=== PATIENT | female | born 1985 | race Caucasian/White ===

== ENCOUNTER 2018-05-10 02:49 | Inpatient (IN) | payer OTHER ==
[~2018-05-10] VITALS: Ht 165.1 cm; Wt 96.0 kg
[~2018-05-10 02:49] MED LIST: LABE300T2 PO; LEVO25TA2 PO; OXYC-302 PO; PREN1TAB60 PO
[2018-05-10] MEDS ORDERED: NEWBORN KIT ONE (04:19)
[2018-05-10] MEDS ORDERED: OXYTOCIN 30U/ 0.9% NaCL 500ML 500 ML IV ONE (04:32)
[2018-05-10] MEDS ORDERED: D5%-LACTATED RINGERS 1,000 ML IV SCH (04:32)
[2018-05-10] MEDS: LACTATED RINGERS 1,000 ML IV SCH ×2 (04:44→12:21)
[2018-05-10] MEDS ORDERED: ONDANSETRON 2MG/ML, 2ML IVPush PRN (05:00)
[2018-05-10] MEDS ORDERED: PENICILLIN GK 5,000,000 UNITS in SODIUM CHLORIDE 0.9% 100 ML IVPB ONE (05:00)
[2018-05-10] MEDS ORDERED: TERBUTALINE 1 MG/ML, 1ML IVPush PRN (05:00)
[2018-05-10] MEDS ORDERED: CALCIUM CARBONATE 500 MG TAB.CHEW PO PRN (05:00)
[2018-05-10] MEDS ORDERED: FENTANYL PF 100 MCG/2ML IV PRN (05:00)
[2018-05-10 05:01] LABS: BASOPHILS # (AUTO) 0.07 x10^3/uL (0-0.1); BASOPHILS % (AUTO) 1 % (0-1); EOSINOPHILS # (AUTO) 0.23 x10^3/uL (0-0.4); EOSINOPHILS % (AUTO) 2 % (1-7); LYMPHOCYTES # (AUTO) 2.26 x10^3/uL (1-3.4); LYMPHOCYTES % (AUTO) 20 % (22-44); MD NO; MEAN CORPUSCULAR HEMOGLOBIN 28.3 pg (27.0-34.8); MEAN CORPUSCULAR HGB CONC 33.4 g/dL (32.4-35.8); MEAN CORPUSCULAR VOLUME 84.6 fL (80-100); MEAN PLATELET VOLUME 10.4 fL (7.4-10.4); MONOCYTES # (AUTO) 0.69 x10^3/uL (0.2-0.8); MONOCYTES % (AUTO) 6 % (2-9); NEUTROPHILS # (AUTO) 8.32 x10^3/uL (1.8-6.8); NEUTROPHILS % (AUTO) 72 % (42-75); PLATELET COUNT 181 x10^3/uL (130-400); RED BLOOD COUNT 4.37 x10^6/uL (3.82-5.3)
[2018-05-10 05:24] LABS: ALBUMIN 2.5 g/dL (3.4-5.0); ANION GAP 9 mmol/L (5-15); CALCIUM 8.4 mg/dL (8.5-10.1); CHLORIDE 109 mmol/L (98-107)
[2018-05-10 05:30] LABS: ALANINE AMINOTRANSFERASE 17 U/L (12-78); ALKALINE PHOSPHATASE 121 U/L (45-117); BILIRUBIN,TOTAL 0.2 mg/dL (0.2-1.0); CREATININE 0.55 mg/dL (0.55-1.02); TOTAL PROTEIN 6.6 g/dL (6.4-8.2)
[2018-05-10] MEDS ORDERED: OXYTOCIN 30U/ 0.9% NaCL 500ML 500 ML ONE (05:34)
[2018-05-10] MEDS ORDERED: OXYTOCIN 30U/ 0.9% NaCL 500ML 500 ML IV PRN (06:44)
[2018-05-10] MEDS ORDERED: ASPI-496 PO (08:16)
[2018-05-10] MEDS: PENICILLIN GK 2,500,000 UNITS in DEXTROSE 5% 100 ML IVPB SCH ×4 (09:42→20:37)
[2018-05-11] MEDS: PENICILLIN GK 2,500,000 UNITS in DEXTROSE 5% 100 ML IVPB SCH ×2 (01:11→04:40)
[2018-05-11] MEDS ORDERED: FENTANYL PF 100 MCG/2ML ONE ×7 (01:14→09:58)
[2018-05-11] MEDS ORDERED: ONDANSETRON 2MG/ML, 2ML ONE ×2 (01:14→07:16)
[2018-05-11] MEDS: FENTANYL PF 100 MCG/2ML IVPush PRN ×2 (01:16→02:57)
[2018-05-11] MEDS ORDERED: LACTATED RINGERS 1,000 ML IV SCH ×8 (04:13→10:00)
[2018-05-11] MEDS ORDERED: FENTANYL/BUPIV./NS/PF 250 ML EPIDCONT SCH ×3 (04:13→06:17)
[2018-05-11] MEDS ORDERED: LACTATED RINGERS 1,000 ML IVBOLUS PRN ×3 (04:30→06:30)
[2018-05-11] MEDS ORDERED: FENTANYL/BUPIV./NS/PF 0 ML EPIDCONT ONE (04:49)
[2018-05-11] MEDS ORDERED: FENTANYL/BUPIV./NS/PF 250 ML EPIDCONT ONE (04:53)
[2018-05-11] MEDS ORDERED: BUPIVACAINE 0.25% ONE (04:53)
[2018-05-11] MEDS ORDERED: EPHEDRINE 50 MG/ML, 1ML ONE ×2 (04:53→07:16)
[2018-05-11] MEDS ORDERED: METOCLOPRAMIDE 5 MG/ML, 2ML ONE (06:27)
[2018-05-11] MEDS ORDERED: SODIUM CITRATE/CITRIC ACID 30 ML UDC ONE (06:27)
[2018-05-11] MEDS ORDERED: OXYTOCIN 30U/ 0.9% NaCL 500ML 500 ML IV SCH ×2 (06:28→09:17)
[2018-05-11] MEDS ORDERED: ONDANSETRON 2MG/ML, 2ML IVPush PRN ×2 (06:30→07:30)
[2018-05-11] MEDS ORDERED: EPHEDRINE 50 MG/ML, 1ML IVPush PRN ×2 (06:30→07:30)
[2018-05-11] MEDS ORDERED: METOCLOPRAMIDE 5 MG/ML, 2ML IV ONE (06:30)
[2018-05-11] MEDS ORDERED: SODIUM CITRATE/CITRIC ACID 30 ML UDC PO ONE (06:30)
[2018-05-11] MEDS ORDERED: AZITHROMYCIN 500 MG in SODIUM CHLORIDE 0.9% 250 ML IV STA (06:41)
[2018-05-11] MEDS ORDERED: DEXAMETHASONE 4 MG/ML, 1ML ONE (07:16)
[2018-05-11] MEDS ORDERED: PROPOFOL 10 MG/ML, 20ML ONE (07:16)
[2018-05-11] MEDS ORDERED: PHENYLEPHRINE 10 MG/ML ONE (07:16)
[2018-05-11] MEDS ORDERED: KETOROLAC 30 MG/1 ML ONE (07:16)
[2018-05-11] MEDS ORDERED: SUCCINYLCHOLINE 20 MG/ML, 10ML ONE (07:16)
[2018-05-11] MEDS ORDERED: OXYTOCIN 10 UNITS/ML, 1ML ONE (07:16)
[2018-05-11] MEDS ORDERED: CEFAZOLIN 1,000 MG ONE (07:16)
[2018-05-11] MEDS ORDERED: FENTANYL PF 100 MCG/2ML IV PRN (07:30)
[2018-05-11] MEDS ORDERED: ALBUTEROL SULFATE 2.5 MG/3 ML NPPB PRN (07:30)
[2018-05-11] MEDS ORDERED: HYDROmorphone 1 MG/ML, 1ML IV PRN (07:30)
[2018-05-11] MEDS ORDERED: MEPERIDINE/PF 25MG/0.5ML IVPush PRN (07:30)
[2018-05-11] MEDS ORDERED: LABETALOL 5MG/ML, 20ML IV PRN (07:30)
[2018-05-11] MEDS ORDERED: HYDROcodone/APAP 7.5-325MG/15ML UDC PO PRN (07:30)
[2018-05-11] MEDS ORDERED: OXYcodone 5 MG/5 ML ORAL.SOL UDC PO PRN (07:30)
[2018-05-11] MEDS ORDERED: MIDAZOLAM 1 MG/ML, 2ML IV PRN (07:30)
[2018-05-11] MEDS ORDERED: PROMETHAZINE 25 MG/ML, 1ML IV PRN (07:30)
[2018-05-11] MEDS ORDERED: hydrALAzine 20 MG/ML, 1ML IV PRN (07:30)
[2018-05-11] MEDS ORDERED: OXYTOCIN 30U/ 0.9% NaCL 500ML 500 ML ONE (09:11)
[2018-05-11] MEDS ORDERED: ACETAMINOPHEN 325 MG TABLET PO PRN (09:30)
[2018-05-11] MEDS ORDERED: ONDANSETRON 2MG/ML, 2ML IV PRN (09:30)
[2018-05-11] MEDS ORDERED: MISOPROSTOL 200 MCG TABLET PR PRN (09:30)
[2018-05-11] MEDS ORDERED: morphine SULFATE 10 MG/ML, 1ML IVPush PRN ×2 (09:30)
[2018-05-11] MEDS ORDERED: MEPERIDINE/PF 50 MG/ML IM PRN (09:30)
[2018-05-11 10:45] VITALS: BP 123/76
[2018-05-11 12:18] VITALS: BP 126/78
[2018-05-11] MEDS: OXYcodone/APAP 5/325MG TABLET PO PRN ×2 (12:40→16:50)
[2018-05-11] MEDS: KETOROLAC 30 MG/1 ML IV SCH ×2 (14:05→20:10)
[2018-05-11 16:10] VITALS: BP 108/68
[2018-05-11 16:51] LABS: BASOPHILS # (AUTO) 0.03 x10^3/uL (0-0.1); BASOPHILS % (AUTO) 0 % (0-1); EOSINOPHILS # (AUTO) 0.01 x10^3/uL (0-0.4); EOSINOPHILS % (AUTO) 0 % (1-7); LYMPHOCYTES % (AUTO) 10 % (22-44); MD NO; MEAN CORPUSCULAR HEMOGLOBIN 28.7 pg (27.0-34.8); MEAN CORPUSCULAR HGB CONC 33.5 g/dL (32.4-35.8); MEAN CORPUSCULAR VOLUME 85.4 fL (80-100); MEAN PLATELET VOLUME 10.8 fL (7.4-10.4); MONOCYTES # (AUTO) 0.62 x10^3/uL (0.2-0.8); MONOCYTES % (AUTO) 6 % (2-9); NEUTROPHILS # (AUTO) 8.96 x10^3/uL (1.8-6.8); NEUTROPHILS % (AUTO) 84 % (42-75); PLATELET COUNT 119 x10^3/uL (130-400); RED BLOOD COUNT 3.57 x10^6/uL (3.82-5.3); RED CELL DISTRIBUTION WIDTH 14.7 % (9.6-15.2)
[2018-05-11 20:00] VITALS: BP 113/71
[2018-05-12 01:30] VITALS: BP 110/68
[2018-05-12] MEDS: KETOROLAC 30 MG/1 ML IV SCH ×3 (02:08→09:31)
[2018-05-12] MEDS: OXYcodone/APAP 5/325MG TABLET PO PRN ×6 (02:08→19:33)
[2018-05-12 07:40] VITALS: BP 115/76
[2018-05-12] MEDS: PRENATAL VIT/IRON/FA 1 EACH TABLET PO SCH (09:31)
[2018-05-12] MEDS: DOCUSATE 100 MG CAPSULE PO PRN (09:31)
[2018-05-12] MEDS ORDERED: IBUPROFEN 600 MG TABLET ONE (10:00)
[2018-05-12] MEDS: IBUPROFEN 600 MG TABLET PO PRN (18:08)
[2018-05-12 20:00] VITALS: BP 137/94
[2018-05-13] MEDS: OXYcodone/APAP 5/325MG TABLET PO PRN ×4 (01:02→19:45)
[2018-05-13] MEDS: IBUPROFEN 600 MG TABLET PO PRN ×3 (01:02→17:19)
[2018-05-13 04:15] VITALS: BP 116/76
[2018-05-13 07:30] VITALS: BP 131/80
[2018-05-13] MEDS: DOCUSATE 100 MG CAPSULE PO PRN ×2 (08:50→19:45)
[2018-05-13] MEDS: PRENATAL VIT/IRON/FA 1 EACH TABLET PO SCH (08:51)
[2018-05-13] MEDS: SIMETHICONE 80 MG CHEW TAB PO PRN ×2 (13:54→21:02)
[2018-05-13] MEDS ORDERED: IBUPROFEN 600 MG TABLET PO PRN (14:00)
[2018-05-13 19:50] VITALS: BP 136/84
[2018-05-14] MEDS: OXYcodone/APAP 5/325MG TABLET PO PRN ×4 (00:19→20:21)
[2018-05-14] MEDS: IBUPROFEN 600 MG TABLET PO PRN ×4 (00:19→20:21)
[2018-05-14] MEDS: SIMETHICONE 80 MG CHEW TAB PO PRN (05:58)
[2018-05-14] MEDS ORDERED: MAGNESIUM HYDROXIDE 8%, 30ML UDC PO PRN (06:30)
[2018-05-14 08:30] VITALS: BP 135/87
[2018-05-14] MEDS: PRENATAL VIT/IRON/FA 1 EACH TABLET PO SCH (08:36)
[2018-05-14] MEDS ORDERED: IBUP-1222 PO (12:57)
[2018-05-14] MEDS ORDERED: OXYC-302 PO (12:57)
[2018-05-14 20:00] VITALS: BP 132/85
[2018-05-14] MEDS: DOCUSATE 100 MG CAPSULE PO PRN (20:21)
[2018-05-15] MEDS: OXYcodone/APAP 5/325MG TABLET PO PRN ×2 (01:05→08:14)
[2018-05-15] MEDS: PRENATAL VIT/IRON/FA 1 EACH TABLET PO SCH (08:14)
[2018-05-15] MEDS: DOCUSATE 100 MG CAPSULE PO PRN (08:14)
[2018-05-15] MEDS: SIMETHICONE 80 MG CHEW TAB PO PRN (08:14)
[2018-05-15] MEDS: IBUPROFEN 600 MG TABLET PO PRN (08:14)
[2018-05-15 08:15] VITALS: BP 148/88
== END 2018-05-15 12:10 | disposition home or self-care (01) | DRG 788 ==
LOC: LDOP 02:49 → LDIP 04:11 → 2NW 05-11 10:46
PROVIDERS: ADMIT Obstetrics & Gynecology; ATTEND Obstetrics & Gynecology
PROC: 10H07YZ Insertion of Other Device into Products of Conception, Via Natural or Artificial Opening (ICD-10-PCS; 2018-05-10)
PROC: 3E033VJ Introduction of Other Hormone into Peripheral Vein, Percutaneous Approach (ICD-10-PCS; 2018-05-10)
PROC: 10D00Z1 Extraction of Products of Conception, Low, Open Approach (ICD-10-PCS; principal; 2018-05-11)
DX: O60.14X0 Preterm labor third trimester with preterm delivery third trimester, not applicable or unspecified (principal); Z3A.35 35 weeks gestation of pregnancy; O13.4 Gestational [pregnancy-induced] hypertension without significant proteinuria, complicating childbirth; O34.211 Maternal care for low transverse scar from previous cesarean delivery; O66.41 Failed attempted vaginal birth after previous cesarean delivery; Z37.0 Single live birth
CPT/HCPCS: 36415; J7121; 80053; 82803; 84550; 85025; 86850; 86900; 86923; 87081; 89060; 90656; G0378; J0456; J0690; J1100; J1885; J2405; J2540; J2704; J3010; J3490; J0330; J2370; J2590; J2765; J7050; J7120; Q0114

== ENCOUNTER 2018-05-16 14:27 | Emergency (ER) | payer OTHER ==
[~2018-05-16] VITALS: Ht 162.6 cm; Wt 92.8 kg
[~2018-05-16 14:27] MED LIST changes: +ASPI-496 PO; +IBUP-1222 PO
[2018-05-16] MEDS ORDERED: SODIUM CHLORIDE FLUSH 10ML SYR IVF ONE (15:00)
[2018-05-16 15:26] LABS: MICROSCOPIC AUTO
[2018-05-16 15:28] LABS: ALBUMIN 2.7 g/dL (3.4-5.0); ANION GAP 6 mmol/L (5-15); CALCIUM 8.5 mg/dL (8.5-10.1); CHLORIDE 110 mmol/L (98-107); CREATININE 0.67 mg/dL (0.55-1.02)
[2018-05-16 15:28] LABS: CULTURE INDICATED? YES
[2018-05-16] MEDS ORDERED: ACETAMINOPHEN 500 MG TABLET PO ONE (15:30)
[2018-05-16] MEDS ORDERED: METOCLOPRAMIDE 5 MG/ML, 2ML IVPush ONE (15:30)
[2018-05-16] MEDS ORDERED: hydrALAzine 20 MG/ML, 1ML IV ONE ×2 (15:30→16:30)
[2018-05-16 15:31] LABS: BASOPHILS # (AUTO) 0.08 x10^3/uL (0-0.1); BASOPHILS % (AUTO) 1 % (0-1); EOSINOPHILS # (AUTO) 0.18 x10^3/uL (0-0.4); EOSINOPHILS % (AUTO) 3 % (1-7); LYMPHOCYTES # (AUTO) 1.53 x10^3/uL (1-3.4); LYMPHOCYTES % (AUTO) 24 % (22-44); MD NO; MEAN CORPUSCULAR HEMOGLOBIN 28.1 pg (27.0-34.8); MEAN CORPUSCULAR HGB CONC 33.1 g/dL (32.4-35.8); MEAN PLATELET VOLUME 9.3 fL (7.4-10.4); MONOCYTES # (AUTO) 0.41 x10^3/uL (0.2-0.8); MONOCYTES % (AUTO) 7 % (2-9); NEUTROPHILS % (AUTO) 65 % (42-75); PLATELET COUNT 213 x10^3/uL (130-400); RED BLOOD COUNT 3.94 x10^6/uL (3.82-5.3); RED CELL DISTRIBUTION WIDTH 15.5 % (9.6-15.2)
[2018-05-16 15:35] LABS: ALANINE AMINOTRANSFERASE 66 U/L (12-78); ALKALINE PHOSPHATASE 104 U/L (45-117); BILIRUBIN,TOTAL 0.2 mg/dL (0.2-1.0); TOTAL PROTEIN 6.9 g/dL (6.4-8.2)
[2018-05-16] MEDS ORDERED: METOCLOPRAMIDE 5 MG/ML, 2ML ONE (15:45)
[2018-05-16] MEDS ORDERED: ACETAMINOPHEN 500 MG TABLET ONE (15:45)
[2018-05-16] MEDS ORDERED: hydrALAzine 20 MG/ML, 1ML ONE (16:07)
[2018-05-16 16:54] VITALS: BP 125/84
== END 2018-05-16 16:56 | disposition home or self-care (01) ==
LOC: ED 16:28
DX: G43.909 Migraine, unspecified, not intractable, without status migrainosus (principal)
CPT/HCPCS: 36415; 70450; 80053; 81001; 83735; 85025; 87086; 93005; 96374; 96375; 99285; J0360; J2765